=== PATIENT | female | born 1935 | race Caucasian/White ===

== ENCOUNTER 2017-04-09 10:24 | Emergency (ER) | payer MEDICARE, BC ==
--- NOTE | 2017-04-09 10:40 | EDM.PDOC ---
ED HPI GENERAL MEDICAL PROBLEM - General Chief Complaint: Chest Pain Stated Complaint: CHEST PAIN Time Seen by Provider: 04/09/17 10:40 Source of Information: Reports: Patient, Old Records, RN History Limitations: Reports: No Limitations - History of Present Illness INITIAL COMMENTS - FREE TEXT/NARRATIVE: 81 yo female developed anterior chest tightness last night that was still present in cardiac rehab this morning so she was referred to the ER. Has no SOB , nausea, or diaphoresis. Just got a coronary stent in February. Says her BP has been high every morning for awhile now, and that her provider is aware. Has NTG at home, but did not take any. Is on ASA and Plavix already. Has not missed any of her BP meds. Onset Date: 04/08/17 Duration: Hour(s): Location: Reports: Chest (mild heaviness across chest) Quality: Reports: Pressure (heaviness, mild) Severity: Mild Improves with: Reports: None Worsens with: Reports: None Context: Reports: Other (Hx of poorly controlled HTN, CAD with stent placement last month.) Associated Symptoms: Reports: No Other Symptoms Treatments RISK CONSULTING TREASURY DIRECTOR: Reports: Other (see below) (none) Chest Pain Score (Numeric/FACES): 4 - Related Data Allergies Allergy/AdvReac Type Severity Reaction Status Date / Time erythromycin base Allergy Severe Anaphylactic Verified 04/09/17 10:41 [Erythromycin Base] Shock bupropion Allergy Unknown Nausea and Verified 04/09/17 10:41 Vomiting carbamazepine [From Tegretol] Allergy Unknown Nausea and Verified 04/09/17 10:41 Vomiting codeine Allergy Unknown Cannot Verified 04/09/17 10:41 Remember levofloxacin [From Levaquin] Allergy Unknown Cannot Verified 04/09/17 10:41 Remember methotrexate Allergy Unknown Cannot Verified 04/09/17 10:41 Remember Penicillins Allergy Unknown Cannot Verified 04/09/17 10:41 Remember tramadol HCl [From Ultram] Allergy Unknown Rash Verified 04/09/17 10:41 hydrocodone AdvReac Unknown Other Verified 04/09/17 10:41 Home Meds: Home Meds Aspirin [Ecotrin] 325 mg PO QPM 06/25/13 [History] Clopidogrel Bisulfate [Clopidogrel] 75 mg PO DAILY 06/25/13 [History] Lutein/Minerals/Vit A,C & E [Ocuvite] 1 tab PO DAILY 06/25/13 [History] Meclizine [Antivert] 25 mg PO DAILY PRN 06/25/13 [History] Metoprolol Succinate [Toprol XL] 1 tab PO DAILY 06/25/13 [History] Pravastatin Sodium [Pravastatin Sodium] 80 mg PO DAILY 06/25/13 [History] Psyllium Husk [Metamucil] 4 cap PO DAILY PRN 06/25/13 [History] Hydrochlorothiazide [Hydrochlorothiazide] 25 mg PO DAILY 01/03/15 [History] Lisinopril 20 mg PO DAILY 12/30/15 [History] Aspirin 162.5 mg PO DAILY 04/09/17 [History] Clopidogrel [Plavix] 112.5 mg PO 04/09/17 [History] Losartan [Cozaar] 50 mg PO DAILY 04/09/17 [History] Metoprolol Succinate [Toprol Xl] 100 mg PO 04/09/17 [History] Nitroglycerin [Nitrostat] 0.4 mg SL 04/09/17 [History] amLODIPine Besylate [Amlodipine Besylate] 5 mg PO DAILY 04/09/17 [History] Past Medical History HEENT History: Reports: Impaired Vision Cardiovascular History: Reports: High Cholesterol, 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: Musculoskeletal History: Reports: Arthritis Psychiatric History: Reports: Anxiety, Depression Other Dermatologic History: shingles in 1986 - Infectious Disease History Infectious Disease History: Reports: Chicken Pox, Shingles - Past Surgical History HEENT Surgical History: Reports: Cataract Surgery, Tonsillectomy GI Surgical History: Reports: Appendectomy, Cholecystectomy, Colonoscopy, Other (See Below) Social & Family History - Tobacco Use Smoking Status *Q: Former Smoker Years of Tobacco use: 40 Packs/Tins Daily: 0.2 Used Tobacco, but Quit: Yes Month Tobacco Last Used: Nov Second Hand Smoke Exposure: No - Caffeine Use Caffeine Use: Reports: Coffee, Tea - Alcohol Use Days Per Week of Alcohol Use: 0 - Recreational Drug Use Recreational Drug Use: No Drug Use in Last 12 Months: No Recreational Drug Type: Reports: Other (see below) Recreational Drug Use Frequency: Not Used In Over 1 Year Recreational Drug Last Use: 1975 ED ROS GENERAL - Review of Systems Review Of Systems: See Below Constitutional: Reports: No Symptoms HEENT: Reports: No Symptoms Respiratory: Reports: No Symptoms Cardiovascular: Reports: Chest Pain (mild heaviness) Endocrine: Reports: No Symptoms GI/Abdominal: Reports: No Symptoms : Reports: No Symptoms Musculoskeletal: Reports: No Symptoms Skin: Reports: No Symptoms ED EXAM, GENERAL - Physical Exam Exam: See Below Exam Limited By: No Limitations General Appearance: Alert, WD/WN, No Apparent Distress Eye Exam: Bilateral Eye: Normal Inspection Ears: Normal External Exam, Normal Canal, Hearing Grossly Normal, Normal TMs Ear Exam: Bilateral Ear: Auricle Normal, Canal Normal, TM normal Nose: Normal Inspection, Normal Mucosa, No Blood Throat/Mouth: Normal Inspection, Normal Lips, Normal Oropharynx, Normal Voice, No Airway Compromise Head: Atraumatic, Normocephalic Neck: Normal Inspection, Supple, Non-Tender Respiratory/Chest: No Respiratory Distress, Lungs Clear, Normal Breath Sounds, No Accessory Muscle Use Cardiovascular: Regular Rate, Rhythm, No Edema, Other (no chest tenderness.) GI/Abdominal: Normal Bowel Sounds, Soft, Non-Tender, No Distention Back Exam: Normal Inspection Extremities: Normal Inspection, Normal Range of Motion, Non-Tender, No Pedal Edema. No: Pedal Edema, Asnto's Sign, Leg Pain Neurological: Alert, Oriented, CN II-XII Intact, Normal Cognition, No Motor/ Sensory Deficits Psychiatric: Normal Affect, Normal Mood Skin Exam: Warm, Dry, Intact, Normal Color, No Rash Lymphatic: No Adenopathy EKG INTERPRETATION EKG Date: 04/09/17 Time: 10:25 Rhythm: NSR Rate (Beats/Min): 59 [place]: Normal P-Wave: Present QRS: Normal ST-T: Normal QT: Normal Comparison: No Change Course - Vital Signs Text/Narrative:: Chest pain gone after 2nd SL NTG, BP in the high 140's amlodipine 5 mg po given-found out after this was ordered that she is already on this med, usually takes at 3 pm. So when her BP continued to climb post NTG we gave her clonidine 0.1 mg po-BP in the 140's after this med Feeling much better after the BP reduction, asymptomatic Last Recorded V/S: Last Vital Signs Temp 36.7 C 04/09/17 10:39 Pulse 62 04/09/17 10:39 Resp 12 04/09/17 10:39 BP 175/61 H 04/09/17 12:40 Pulse Ox 98 04/09/17 10:39 - Orders/Labs/Meds Orders: Active Orders 24 hr Category Date Time Status Cardiac Monitoring [RC] .As Directed Care 04/09/17 10:27 Active EKG Documentation Completion [RC] ASDIRECTED Care 04/09/17 10:27 Active Nitroglycerin [Nitrostat] Med 04/09/17 10:41 Active 0.4 mg SL Q5M PRN Sodium Chloride 0.9% [Saline Flush] Med 04/09/17 10:41 Active 10 ml FLUSH ASDIRECTED PRN Saline Lock Insert [OM.PC] Routine Oth 04/09/17 10:41 Ordered EKG 12 Lead [EK] Routine Ther 04/09/17 10:27 Ordered Medication Orders Nitroglycerin (Nitrostat) 0.4 mg SL Q5M PRN PRN Reason: Chest Pain Last Admin: 04/09/17 10:52 Dose: 0.4 mg Admin: 04/09/17 10:49 Dose: 0.4 mg Sodium Chloride (Saline Flush) 10 ml FLUSH ASDIRECTED PRN PRN Reason: Keep Vein Open Last Admin: 04/09/17 10:30 Dose: 10 ml Labs: Laboratory Tests 04/09/17 Range/Units 10:51 Sodium 141 (140-148) mmol/L Potassium 3.6 (3.6-5.2) mmol/L Chloride 104 (100-108) mmol/L Carbon Dioxide 31 (21-32) mmol/L Anion Gap 6.5 (5.0-14.0) mmol/L BUN 12 (7-18) mg/dL Creatinine 0.8 (0.6-1.0) mg/dL Est Cr Clr Drug Dosing 43.62 mL/min Estimated GFR (MDRD) > 60 (>60) Glucose 90 (74-106) mg/dL Calcium 9.4 (8.5-10.1) mg/dL Troponin I < 0.017 (0.000-0.056) ng/mL Meds: Medications Generic Name Dose Route Start Last Admin Trade Name Freq PRN Reason Stop Dose Admin Nitroglycerin 0.4 mg 04/09/17 10:41 04/09/17 10:52 Nitrostat SL 0.4 mg Q5M PRN Administration Chest Pain Sodium Chloride 10 ml 04/09/17 10:41 04/09/17 10:30 Saline Flush FLUSH 10 ml ASDIRECTED PRN Administration Keep Vein Open Discontinued Medications Generic Name Dose Route Start Last Admin Trade Name Andria PRN Reason Stop Dose Admin Amlodipine Besylate 5 mg 04/09/17 11:05 04/09/17 11:21 Norvasc PO 04/09/17 11:06 5 mg ONETIME ONE Administration Clonidine HCl 0.1 mg 04/09/17 12:17 04/09/17 12:40 Catapres PO 04/09/17 12:18 0.1 mg ONETIME ONE Administration Potassium Chloride 40 meq 04/09/17 11:12 04/09/17 11:21 Klor-Con M20 PO 04/09/17 11:13 40 meq ONETIME ONE Administration Departure - Departure Time of Disposition: 13:25 Disposition: Home, Self-Care 01 Condition: Fair Clinical Impression: Hypertensive urgency Referrals: PCP,None [Primary Care Provider] - Forms: ED Department Discharge - My Orders Last 24 Hours: My Active Orders 04/09/17 10:27 Cardiac Monitoring [RC] .As Directed EKG Documentation Completion [RC] ASDIRECTED EKG 12 Lead [EK] Routine 04/09/17 10:41 Nitroglycerin [Nitrostat] 0.4 mg SL Q5M PRN Sodium Chloride 0.9% [Saline Flush] 10 ml FLUSH ASDIRECTED PRN Saline Lock Insert [OM.PC] Routine - Assessment/Plan Last 24 Hours: My Active Orders 04/09/17 10:27 Cardiac Monitoring [RC] .As Directed EKG Documentation Completion [RC] ASDIRECTED EKG 12 Lead [EK] Routine 04/09/17 10:41 Nitroglycerin [Nitrostat] 0.4 mg SL Q5M PRN Sodium Chloride 0.9% [Saline Flush] 10 ml FLUSH ASDIRECTED PRN Saline Lock Insert [OM.PC] Routine
[2017-04-09] MEDS ORDERED: Sodium Chloride 0.9% 10 ML Syringe FLUSH PRN (10:41)
[2017-04-09] MEDS: Nitroglycerin 0.4 MG Tab.SL SL PRN ×2 (10:49→10:52)
[2017-04-09] MEDS ORDERED: amLODIPine 5 MG Tab PO ONE (11:05)
[2017-04-09] MEDS ORDERED: Potassium Chloride 20 MEQ Tab.ER PO ONE (11:12)
[2017-04-09] MEDS ORDERED: cloNIDine 0.1 MG Tab PO ONE (12:17)
[2017-04-09 13:43] VITALS: BP 140/65
== END 2017-04-09 13:44 | disposition home or self-care (01) ==
LOC: JP.ED 10:24
DX: I16.0 Hypertensive urgency (principal); I10 Essential (primary) hypertension; E78.00 Pure hypercholesterolemia, unspecified; Z88.1 Allergy status to other antibiotic agents; Z88.0 Allergy status to penicillin; Z88.5 Allergy status to narcotic agent; Z88.8 Allergy status to other drugs, medicaments and biological substances; Z79.82 Long term (current) use of aspirin; Z79.899 Other long term (current) drug therapy; Z87.891 Personal history of nicotine dependence
CPT/HCPCS: 36415; 80048; 84484; 93005; 99285; A9270; J7050

== ENCOUNTER 2017-06-29 15:04 | Emergency (ER) | payer MEDICARE, BC ==
[2017-06-29] MEDS ORDERED: Aspirin 81 MG Tab.Chew PO ONE (15:29)
--- NOTE | 2017-06-29 15:32 | EDM.PDOC ---
ED HPI GENERAL MEDICAL PROBLEM - General Chief Complaint: Cardiovascular Problem Stated Complaint: HEART ATTACK? Time Seen by Provider: 06/29/17 15:24 Source of Information: Reports: Patient, Family, RN Notes Reviewed History Limitations: Reports: No Limitations - History of Present Illness INITIAL COMMENTS - FREE TEXT/NARRATIVE: 81-year-old female presents to the emergency department day complaint of chest pressure, she has a known history of coronary artery disease recently received stenting in March of this year. She states she felt some discomfort last night very short and intermittent however today when she was mowing the grass felt chest pressure center of her chest to the point where she had stopped mowing she felt so weak that she actually went to the ground she denies passing out but she was able to test her blood pressure at that time and it was low for her. At this time she still feels some chest pressure rates it may be 1-2 out of 10 she does not feel nauseated but does feel short of breath no diaphoresis Chest Pain Score (Numeric/FACES): 4 - Related Data Allergies Allergy/AdvReac Type Severity Reaction Status Date / Time erythromycin base Allergy Severe Anaphylactic Verified 06/29/17 15:18 [Erythromycin Base] Shock bupropion Allergy Unknown Nausea and Verified 06/29/17 15:18 Vomiting carbamazepine [From Tegretol] Allergy Unknown Nausea and Verified 06/29/17 15:18 Vomiting codeine Allergy Unknown Cannot Verified 06/29/17 15:18 Remember levofloxacin [From Levaquin] Allergy Unknown Cannot Verified 06/29/17 15:18 Remember methotrexate Allergy Unknown Cannot Verified 06/29/17 15:18 Remember Penicillins Allergy Unknown Cannot Verified 06/29/17 15:18 Remember tramadol HCl [From Ultram] Allergy Unknown Rash Verified 06/29/17 15:18 lisinopril Allergy Nausea Verified 06/29/17 15:18 Sulfa (Sulfonamide Allergy Indigestion Verified 06/29/17 15:18 Antibiotics) hydrocodone AdvReac Unknown Other Verified 06/29/17 15:18 Home Meds: Home Meds Lutein/Minerals/Vit A,C & E [Ocuvite] 1 tab PO DAILY 06/25/13 [History] Metoprolol Succinate [Toprol XL] 1 tab PO DAILY 06/25/13 [History] Hydrochlorothiazide 25 mg PO DAILY 01/03/15 [History] Aspirin 162.5 mg PO DAILY 04/09/17 [History] Clopidogrel [Plavix] 112.5 mg PO DAILY 04/09/17 [History] Losartan [Cozaar] 50 mg PO DAILY 04/09/17 [History] Nitroglycerin [Nitrostat] 0.4 mg SL ASDIRECTED 04/09/17 [History] cloNIDine [Catapres] 0.1 mg PO Q12HR PRN #30 tab 04/09/17 [Rx] Ipratropium [Atrovent 0.03% Nasal [place]] 2 spray IN BID 06/29/17 [History] Isosorbide Mononitrate [Imdur] 30 mg PO DAILY 06/29/17 [History] Past Medical History HEENT History: Reports: Impaired Vision Cardiovascular History: Reports: High Cholesterol, 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: Musculoskeletal History: Reports: Arthritis Psychiatric History: Reports: Anxiety, Depression Other Dermatologic History: shingles in 1986 - Infectious Disease History Infectious Disease History: Reports: Chicken Pox, Shingles - Past Surgical History HEENT Surgical History: Reports: Cataract Surgery, Tonsillectomy GI Surgical History: Reports: Appendectomy, Cholecystectomy, Colonoscopy, Other (See Below) Social & Family History - Caffeine Use Caffeine Use: Reports: Coffee, Tea ED ROS GENERAL - Review of Systems Review Of Systems: See Below Constitutional: Reports: No Symptoms HEENT: Reports: No Symptoms Respiratory: Reports: Shortness of Breath Cardiovascular: Reports: Chest Pain, Dyspnea on Exertion, Lightheadedness GI/Abdominal: Reports: No Symptoms : Reports: No Symptoms Musculoskeletal: Reports: No Symptoms Skin: Reports: No Symptoms Neurological: Reports: No Symptoms ED EXAM, GENERAL - Physical Exam Exam: See Below Free Text/Narrative:: General: Female, not in any distress, slightly anxious, alert and oriented x3 HEENT: head is atraumatic normocephalic, eyes pupils equal round reactive to light, sclera clear no conjunctivitis appreciated. Ears tympanic membranes clear and gaspar landmarks and light reflex are present bilaterally canals are clear. Nose no septal deviation, nares are clear, no blood present. Mouth mucosa is moist and pink no erythema or exudate noted in soft palate, tongue is midline uvula is midline, dentition is intact. Neck: Supple no thyromegaly no tracheal deviation. Nodes: Cervical nodes subclavicular nodes nontender no palpable lymphadenopathy noted. Lungs: clear to auscultation bilaterally with symmetrical respirations, no adventitious noise appreciated. CV: Regular rate and rhythm S1 and S2 appreciated no murmurs rubs or gallops noted. Abdomen: Soft, nontender, no palpable masses or organomegaly appreciated, no distention no guarding bowel sounds are present, . Neuro: Cranial nerves II through XII grossly intact Skin: Warm and dry, intact Extremities: No lower extremity edema appreciated, pedal pulse is +2. Course - Vital Signs Last Recorded V/S: Last Vital Signs Temp 97.8 F 06/29/17 15:25 Pulse 65 06/29/17 17:48 Resp 17 06/29/17 17:48 BP 152/62 H 06/29/17 17:48 Pulse Ox 95 06/29/17 17:48 Orthostatic Blood Pressure [ 150/80 Standing] Orthostatic Blood Pressure [ 172/78 Sitting] Orthostatic Blood Pressure [ 146/74 Supine] - Orders/Labs/Meds Orders: Active Orders 24 hr Category Date Time Status Cardiac Monitoring [RC] .As Directed Care 06/29/17 15:29 Active EKG Documentation Completion [RC] ASDIRECTED Care 06/29/17 15:30 Active Chest 1V Frontal [CR] Stat Exams 06/29/17 15:30 Taken EKG 12 Lead [EK] Stat Ther 06/29/17 15:30 Ordered Labs: Laboratory Tests 06/29/17 06/29/17 Range/Units 15:43 15:43 WBC 6.5 (4.5-11.0) K/uL RBC 3.89 (3.30-5.50) M/uL Hgb 11.8 L (12.0-15.0) g/dL Hct 35.7 L (36.0-48.0) % MCV 92 (80-98) fL MCH 30 (27-31) pg MCHC 33 (32-36) % Plt Count 211 (150-400) K/uL Neut % (Auto) 64 (36-66) % Lymph % (Auto) 23 L (24-44) % [place] % (Auto) 11 H (2-6) % Eos % (Auto) 2 (2-4) % Baso % (Auto) 1 (0-1) % Sodium 143 (140-148) mmol/L Potassium 4.0 (3.6-5.2) mmol/L Chloride 102 (100-108) mmol/L Carbon Dioxide 29 (21-32) mmol/L Anion Gap 12.0 (5.0-14.0) mmol/L BUN 30 H D (7-18) mg/dL Creatinine 1.1 H (0.6-1.0) mg/dL Est Cr Clr Drug Dosing 31.72 mL/min Estimated GFR (MDRD) 48 L (>60) Glucose 118 H (74-106) mg/dL Calcium 8.8 (8.5-10.1) mg/dL Total Bilirubin 0.5 D (0.2-1.0) mg/dL AST 28 (15-37) U/L ALT 29 (12-78) U/L Alkaline Phosphatase 55 (46-116) U/L CK-MB (CK-2) 1.8 (0-3.6) mg/mL Troponin I < 0.017 (0.000-0.056) ng/mL Total Protein 7.1 (6.4-8.2) g/dL Albumin 4.0 (3.4-5.0) g/dL Globulin 3.1 (2.3-3.5) g/dL Albumin/Globulin Ratio 1.3 (1.2-2.2) Meds: Medications Discontinued Medications Generic Name Dose Route Start Last Admin Trade Name Freq PRN Reason Stop Dose Admin Aspirin 324 mg 06/29/17 15:29 06/29/17 15:59 Aspirin PO 06/29/17 15:30 324 mg ONETIME ONE Administration Departure - Departure Time of Disposition: 18:25 Disposition: Home, Self-Care 01 Condition: Good Clinical Impression: Orthostatic hypotension Referrals: Harriet Webster CNM [Primary Care Provider] - Forms: ED Department Discharge Additional Instructions: Recommend stopping the hydrochlorothiazide, continue to check your blood pressure at home daily, report to the clinic on of this week and then reevaluation by a provider within 5-7 days with review on blood pressure medications, call return to the emergency department worsening of symptoms - My Orders Last 24 Hours: My Active Orders 06/29/17 15:29 Cardiac Monitoring [RC] .As Directed 06/29/17 15:30 EKG Documentation Completion [RC] ASDIRECTED Chest 1V Frontal [CR] Stat EKG 12 Lead [EK] Stat - Assessment/Plan Last 24 Hours: My Active Orders 06/29/17 15:29 Cardiac Monitoring [RC] .As Directed 06/29/17 15:30 EKG Documentation Completion [RC] ASDIRECTED Chest 1V Frontal [CR] Stat EKG 12 Lead [EK] Stat Plan: Assessment Acuity = acute Site and laterality = postural orthostatic hypotension Etiology = suspicious for blood pressure medications Manifestations = dizziness with positional change Location of injury = Home Lab values = CBC, CMP, troponin, EKG within normal limits Plan I did review her blood pressure medications she did demonstrate orthostatic change with dizziness recommend stopping hydrochlorothiazide recheck blood pressure daily at home follow-up in the clinic on with reevaluation of blood pressure medications This note was dictated using [employer] voice recognition software please call with any questions on syntax or grammar.
[2017-06-29 17:57] VITALS: BP 152/62
--- NOTE | 2017-06-30 09:13 | CR ---
Chest 1V Frontal FINDINGS: The heart and vascular structures are normal in appearance. No infiltrates or effusions are demonstrated. There are degenerative findings throughout the thoracic spine. Impression: 1. No acute findings.
== END 2017-06-29 18:46 | disposition home or self-care (01) ==
LOC: JP.ED 15:04
DX: I95.1 Orthostatic hypotension (principal); I10 Essential (primary) hypertension; E78.00 Pure hypercholesterolemia, unspecified; Z88.1 Allergy status to other antibiotic agents; Z88.5 Allergy status to narcotic agent; Z88.8 Allergy status to other drugs, medicaments and biological substances; Z88.0 Allergy status to penicillin; Z79.899 Other long term (current) drug therapy; Z79.82 Long term (current) use of aspirin
CPT/HCPCS: 36415; 71045; 80053; 82553; 84484; 85025; 93005; 99285; A9270; 93010; 99284

== ENCOUNTER 2018-06-10 09:04 | Day surgery (SDC) | payer BC, MEDICARE ==
[2018-06-10] MEDS ORDERED: Sodium Chloride 0.9% 1,000 ML IV SCH (09:45)
[2018-06-10] MEDS ORDERED: fentaNYL 100 MCG/2 ML SDV ONE (10:03)
[2018-06-10] MEDS ORDERED: Propofol 200 MG/20 ML SDV ONE (10:03)
[2018-06-10 11:36] VITALS: BP 110/69
--- NOTE | 2018-06-11 08:27 | OR ---
DATE OF PROCEDURE: 06/10/2018 PROCEDURES: 1. Proctoscopy. 2. Internal hemorrhoid banding. COMPLICATIONS: None. SURGEON: Tristian Mayen MD INSPECTOR HEATING AND REFRIGERATION: None. ANESTHESIA: MAC. PREOPERATIVE DIAGNOSIS: Gastrointestinal bleeding. POSTOPERATIVE DIAGNOSIS: Gastrointestinal bleeding. INDICATIONS: An 82-year-old female who has had some lower GI bleeding. The patient was told she can never have a colonoscopy by several physicians. Therefore, the patient will undergo just a proctoscope just to see if there are any abnormalities in the rectum and then hemorrhoid banding. We discussed the risks, benefits, alternatives, and limitations of this. The patient understands these risks and wished to proceed. PROCEDURE IN DETAIL: The patient was placed in left lateral decubitus position. Digital rectal exam was performed without abnormality. The scope was introduced approximately 10 cm. No evidence of diverticulosis. No old or new blood. No masses. No polyps. She did have prominent internal hemorrhoids. This was banded x1 with the most prominent one. No abnormalities on retroflexion. The patient tolerated the procedure well. Tristian Mayen MD /[id number]
== END 2018-06-10 12:05 | disposition home or self-care (01) ==
LOC: JP.SDS 09:04
PROVIDERS: ATTEND Surgery
DX: K64.8 Other hemorrhoids (principal); K92.2 Gastrointestinal hemorrhage, unspecified; I10 Essential (primary) hypertension; I25.2 Old myocardial infarction; I25.10 Atherosclerotic heart disease of native coronary artery without angina pectoris; E78.5 Hyperlipidemia, unspecified; F41.9 Anxiety disorder, unspecified; F32.9 Major depressive disorder, single episode, unspecified
CPT/HCPCS: 45300; 46945; J2704; J3010; J7030

== ENCOUNTER 2019-01-27 05:59 | Day surgery (SDC) | payer MEDICARE ==
[2019-01-27] MEDS ORDERED: Dextrose 5%-Lactated Ringers 1,000 ML IV SCH (06:30)
[2019-01-27] MEDS ORDERED: Propofol 200 MG/20 ML SDV ONE (07:36)
[2019-01-27] MEDS ORDERED: fentaNYL 100 MCG/2 ML SDV ONE (07:36)
[2019-01-27] MEDS ORDERED: Pantoprazole 40 MG Vial IVPUSH ONE (08:07)
[2019-01-27 09:39] VITALS: BP 125/58; PULSE 60
--- NOTE | 2019-02-02 16:20 | OR ---
CORRECTED REPORT DATE OF PROCEDURE: 01/27/2019 SURGEON: Mikey Knight MD PREOPERATIVE DIAGNOSIS: Epigastric pain. POSTOPERATIVE DIAGNOSIS: Erosive antral gastritis. OPERATIVE PROCEDURE: Esophagogastroduodenoscopy with antral biopsies for CLOtest. ANESTHESIA: IV sedation. INDICATIONS FOR PROCEDURE: This is an 83-year-old presenting with some ongoing epigastric discomfort as well as frequent episodes of nausea. She is undergoing upper GI endoscopy for diagnostic purposes. Potential risks including bleeding and perforation were discussed, and the patient wishes to proceed. DETAILS OF PROCEDURE: The patient was taken to the operating room and placed in a left lateral decubitus position. IV sedation was administered, after which the upper GI endoscope was passed orally through the length of the esophagus into the stomach with retroflexion view of the fundus, thereafter through the pyloric channel and into the junction of the third and fourth portions of the duodenum. Findings included normal hypopharynx, larynx, upper esophageal sphincter, and esophageal body. At the EG junction, no significant ulceration or pathology was seen. Within the stomach, there were some patchy reddened areas in the antrum which had few scattered erosions. These were covered roughly with some fibrinous exudate. No blood or bleeding was seen. The pyloric channel and duodenum were unremarkable, specifically, there was no inflammation in those areas and the ampulla of Vater appeared to be unremarkable. At this point, biopsies were obtained from the antrum and sent for CLOtest for H. pylori. Minimal bleeding from the biopsy sites was seen and the procedure then concluded. The patient will be given IV Protonix in the recovery room and then Protonix 40 mg daily and following up with Dr. Harriet Webster after 2 weeks. If the proton pump inhibitor therapy fails to adequately treat the symptoms, additional workup such as CAT scan of the abdomen would be warranted. Mikey Knight MD /[id number]
== END 2019-01-27 09:41 | disposition home or self-care (01) ==
LOC: JP.SDS 05:59
PROVIDERS: ATTEND Surgery
DX: K29.70 Gastritis, unspecified, without bleeding (principal); K74.60 Unspecified cirrhosis of liver; K21.9 Gastro-esophageal reflux disease without esophagitis; E78.5 Hyperlipidemia, unspecified; I10 Essential (primary) hypertension
CPT/HCPCS: 43239; 87081; C9113; J2704; J3010; J7121

== ENCOUNTER 2019-08-16 10:33 | Emergency (ER) | payer MEDICARE ==
[2019-08-16 10:46] VITALS: BP 136/52; PULSE 61
--- NOTE | 2019-08-16 11:08 | EDM.PDOC ---
ED HPI GENERAL MEDICAL PROBLEM - General Chief Complaint: Syncope Stated Complaint: POSSIBLE HEART ATTACK Time Seen by Provider: 08/16/19 10:55 Source of Information: Reports: Patient, Family, Old Records, RN Notes Reviewed History Limitations: Reports: No Limitations - History of Present Illness INITIAL COMMENTS - FREE TEXT/NARRATIVE: 84-year-old female presents emergency department today with syncopal event, this is her second event in approximately 2 months. First event she did follow-up with her primary care at [facility] after reading old records unclear of the event had some memory issue concerned it may have been a transient global amnesia. This particular event she accidentally caught 1 of the digits on her left hand in a door she states it caused severe pain after the pain she had a syncopal event was caught by bystanders taken to the ground then carried to the car drove to her home bystander did give her 1 nitro tablet EMS services were called at that time. By the time they arrived she was not answering questions appropriately however vital signs are stable twelve-lead EKG was obtained demonstrates normal sinus rhythm there is no ST elevations or depressions. She did arouse was able to respond to questions appropriately refused ambulance transfer. Presented to the ED via private vehicle requesting blood work only and not an evaluation. At this time she has no shortness of breath no diaphoresis no chest pressure she does have a cardiac history with stenting x1 recently February 2019 old EKGs are not available Left Finger-Little Pain Score (Numeric/FACES): 4 - Related Data Allergies Allergy/AdvReac Type Severity Reaction Status Date / Time erythromycin base Allergy Severe Anaphylactic Verified 01/27/19 06:27 [Erythromycin Base] Shock codeine Allergy Unknown Cannot Verified 01/27/19 06:27 Remember levofloxacin [From Levaquin] Allergy Unknown Cannot Verified 01/27/19 06:27 Remember methotrexate Allergy Unknown Cannot Verified 01/27/19 06:27 Remember Penicillins Allergy Unknown Cannot Verified 01/27/19 06:27 Remember tramadol HCl [From Ultram] Allergy Unknown Rash Verified 01/27/19 06:27 bupropion AdvReac Unknown Nausea and Verified 01/27/19 06:27 Vomiting carbamazepine [From Tegretol] AdvReac Unknown Nausea and Verified 01/27/19 06:27 Vomiting hydrocodone AdvReac Unknown Other Verified 01/27/19 06:27 acetaminophen [From Tylenol] AdvReac Nausea and Verified 12/12/19 06:27 Vomiting lisinopril AdvReac Nausea Verified 01/27/19 06:27 Sulfa (Sulfonamide AdvReac Indigestion Verified 01/27/19 06:27 Antibiotics) Home Meds: Home Meds Lutein/Minerals/Vit A,C & E [Ocuvite] 1 tab PO DAILY 06/25/13 [History] Losartan [Cozaar] 50 mg PO DAILY 04/09/17 [History] Nitroglycerin [Nitrostat] 0.4 mg SL ASDIRECTED 04/09/17 [History] Isosorbide Mononitrate [Imdur] 60 mg PO DAILY 06/29/17 [History] Aspirin [Halfprin] 81 mg PO DAILY 06/08/18 [History] amLODIPine [Norvasc] 10 mg PO DAILY 06/08/18 [History] Diclofenac Sodium [Voltaren 0.1% Ophth Soln] 4 gm TOP QID 01/25/19 [History] Rosuvastatin [Crestor] 5 mg PO MOFR 01/25/19 [History] Past Medical History HEENT History: Reports: Cataract, Impaired Vision, Macular Degeneration Cardiovascular History: Reports: Angina, Blood Clots/VTE/DVT, CAD, High Cholesterol, Hypertension, [place], Stents Respiratory History: Reports: SOB Gastrointestinal History: Reports: GERD, Hemorrhoids [employer] History: Reports: Dysfunctional Uterine Bleeding, Musculoskeletal History: Reports: Fracture, Osteoarthritis, Other (See Below) Other Musculoskeletal History: left shoulder pain - has had injection Neurological History: Reports: Concussion Psychiatric History: Reports: Addiction, Anxiety, Depression Other Dermatologic History: shingles in 1986 - Infectious Disease History Infectious Disease History: Reports: Chicken Pox - Past Surgical History HEENT Surgical History: Reports: Cataract Surgery, Oral Surgery, Tonsillectomy Cardiovascular Surgical History: Reports: Coronary Artery Stent, Other (See Below) Other Cardiovascular Surgeries/Procedures: Stents in legs Respiratory Surgical History: Reports: None GI Surgical History: Reports: Appendectomy, Cholecystectomy, Colonoscopy, Other (See Below) Other GI Surgeries/Procedures: plastic in colon from colonoscopy - from many many years ago Female Surgical History: Reports: Breast Biopsy, Hysterectomy, Salpingo- Oophorectomy Neurological Surgical History: Reports: None Musculoskeletal Surgical History: Reports: Other (See Below) Other Musculoskeletal Surgeries/Procedures:: Jonatan in left leg/removed Dermatological Surgical History: Reports: None Social & Family History - Tobacco Use Smoking Status *Q: Never Smoker - Caffeine Use Caffeine Use: Reports: Coffee - Recreational Drug Use Recreational Drug Use: No ED ROS GENERAL - Review of Systems Review Of Systems: See Below Constitutional: Reports: No Symptoms HEENT: Reports: No Symptoms Respiratory: Reports: No Symptoms Cardiovascular: Reports: Syncope GI/Abdominal: Reports: Nausea ED EXAM, GENERAL - Physical Exam Exam: See Below Exam Limited By: No Limitations General Appearance: Alert, WD/WN, No Apparent Distress Respiratory/Chest: No Respiratory Distress, Lungs Clear, Normal Breath Sounds, No Accessory Muscle Use, Chest Non-Tender Cardiovascular: Regular Rate, Rhythm, No Murmur Extremities: No Pedal Edema Course - Vital Signs Last Recorded V/S: Last Vital Signs Temp 96.9 F 08/16/19 10:51 Pulse 61 08/16/19 10:51 Resp 16 08/16/19 10:51 BP 136/52 L 08/16/19 10:51 Pulse Ox 99 08/16/19 10:51 - Orders/Labs/Meds Labs: Laboratory Tests 08/16/19 08/16/19 08/16/19 Range/Units 11:17 11:17 11:17 WBC 8.0 (4.5-11.0) K/uL RBC 3.71 (3.30-5.50) M/uL Hgb 11.3 L (12.0-15.0) g/dL Hct 34.9 L (36.0-48.0) % MCV 94 (80-98) fL MCH 31 (27-31) pg MCHC 32 (32-36) % Plt Count 233 (150-400) K/uL Neut % (Auto) 72 H (36-66) % Lymph % (Auto) 17 L (24-44) % [place] % (Auto) 10 H (2-6) % Eos % (Auto) 1 L (2-4) % Baso % (Auto) 1 (0-1) % Sodium 143 (140-148) mmol/L Potassium 4.4 (3.6-5.2) mmol/L Chloride 107 (100-108) mmol/L Carbon Dioxide 25 (21-32) mmol/L Anion Gap 11.1 (5.0-14.0) mmol/L BUN 23 H (7-18) mg/dL Creatinine 1.0 (0.6-1.0) mg/dL Est Cr Clr Drug Dosing 30.08 mL/min Estimated GFR (MDRD) 53 L (>60) Glucose 103 (74-106) mg/dL Calcium 9.1 (8.5-10.1) mg/dL Troponin I < 0.017 (0.000-0.056) ng/mL 08/16/19 Range/Units 13:26 WBC (4.5-11.0) K/uL RBC (3.30-5.50) M/uL Hgb (12.0-15.0) g/dL Hct (36.0-48.0) % MCV (80-98) fL MCH (27-31) pg MCHC (32-36) % Plt Count (150-400) K/uL Neut % (Auto) (36-66) % Lymph % (Auto) (24-44) % [place] % (Auto) (2-6) % Eos % (Auto) (2-4) % Baso % (Auto) (0-1) % Sodium (140-148) mmol/L Potassium (3.6-5.2) mmol/L Chloride (100-108) mmol/L Carbon Dioxide (21-32) mmol/L Anion Gap (5.0-14.0) mmol/L BUN (7-18) mg/dL Creatinine (0.6-1.0) mg/dL Est Cr Clr Drug Dosing mL/min Estimated GFR (MDRD) (>60) Glucose (74-106) mg/dL Calcium (8.5-10.1) mg/dL Troponin I < 0.017 (0.000-0.056) ng/mL Departure - Departure Time of Disposition: 14:09 Disposition: Against Medical Advice 07 Condition: Fair Clinical Impression: Syncope Referrals: Harriet Webster CNM [Primary Care Provider] - Forms: ED Department Discharge Sepsis Event Note (ED) - Evaluation Sepsis Screening Result: No Definite Risk - Focused Exam Vital Signs: Vital Signs Temp Pulse Resp BP Pulse Ox 08/16/19 10:51 96.9 F 61 16 136/52 L 99 08/16/19 10:44 96.9 F 61 16 136/52 L 99 - Assessment/Plan Plan: Assessment Acuity = acute Site and laterality = syncope Etiology = unknown Manifestations = none Location of injury = Home Lab values = CBC, CMP negative troponin negative x2 EKG demonstrates a sinus rhythm no ST elevations or depressions Plan Keep follow-up appointment with cardiology in August, recent cardiac cath in February 2019 did not show any new significant stenosis for angioplasty This note was dictated using [employer] voice recognition software please call with any questions on syntax or grammar.
== END 2019-08-16 13:45 | disposition left against medical advice (07) ==
LOC: JP.ED 10:33
DX: R55 Syncope and collapse (principal); I25.10 Atherosclerotic heart disease of native coronary artery without angina pectoris; E78.00 Pure hypercholesterolemia, unspecified; I10 Essential (primary) hypertension; I25.2 Old myocardial infarction; M19.90 Unspecified osteoarthritis, unspecified site; Z79.82 Long term (current) use of aspirin; Z79.899 Other long term (current) drug therapy; Z88.1 Allergy status to other antibiotic agents; Z88.5 Allergy status to narcotic agent; Z88.0 Allergy status to penicillin; Z88.2 Allergy status to sulfonamides; Z88.8 Allergy status to other drugs, medicaments and biological substances; Z95.5 Presence of coronary angioplasty implant and graft
CPT/HCPCS: 36415; 80048; 84484; 85025; 99284

== ENCOUNTER 2021-07-01 09:08 | Day surgery (SDC) | payer MEDICARE ==
[~2021-07-01 09:08] MED LIST: Propofol 200 MG/20 ML SDV ONE; fentaNYL 100 MCG/2 ML SDV ONE
[2021-07-01] MEDS ORDERED: Dextrose 5%-Lactated Ringers 1,000 ML IV SCH (09:32)
[2021-07-01] MEDS ORDERED: amLODIPine 5 MG Tab PO ONE ×2 (09:32→10:00)
[2021-07-01] MEDS: Isosorbide Mononitrate 30 MG Tab.ER PO ONE ×2 (09:47→10:36)
[2021-07-01 12:52] VITALS: PULSE 54
[2021-07-01 12:58] VITALS: BP 121/54
== END 2021-07-01 13:05 | disposition home or self-care (01) ==
LOC: JP.SDS 09:08
PROVIDERS: ATTEND Surgery
DX: K62.3 Rectal prolapse (principal); I10 Essential (primary) hypertension; I25.10 Atherosclerotic heart disease of native coronary artery without angina pectoris; E78.5 Hyperlipidemia, unspecified
CPT/HCPCS: A9270-GY; J2704; J3010; J7121

== ENCOUNTER 2021-08-03 09:17 | Emergency (ER) | payer MEDICARE ==
[2021-08-03 09:19] VITALS: BP 168/63; PULSE 64
[2021-08-03] MEDS ORDERED: Sodium Chloride 0.9% 10 ML Syringe FLUSH PRN (09:42)
[2021-08-03] MEDS ORDERED: Sodium Chloride 0.9% 1,000 ML IV SCH (09:45)
[2021-08-03 10:25] LABS: ESTIMATED GFR 62 mL/min (>60); TROPONIN I HIGH SENSITIVITY 16.4 pg/mL (<=60.3)
[2021-08-03] MEDS ORDERED: Iopamidol 755 Mg/ML 100 ML Bottle IV ONE (10:33)
[2021-08-03] MEDS ORDERED: Sodium Chloride 0.9% 100 ML IV SCH (10:45)
== END 2021-08-03 12:33 | disposition home or self-care (01) ==
LOC: JP.ED 09:17
DX: R55 Syncope and collapse (principal); I10 Essential (primary) hypertension; I25.2 Old myocardial infarction; E78.00 Pure hypercholesterolemia, unspecified; Z88.1 Allergy status to other antibiotic agents; Z88.5 Allergy status to narcotic agent; Z79.899 Other long term (current) drug therapy
CPT/HCPCS: 36415; 70450; 70496; 70498; 80053; 82550; 83605; 84484; 85025; 85379; 93005; 93010; 96360; 99283; 99284; J3490; J7030; Q9967